=== PATIENT | female | born 1985 | race Caucasian/White ===

== ENCOUNTER 2022-10-07 11:45 | Outpatient (RCR) | payer MEDICARE, SELFPAY ==
[2022-10-03 13:28] VITALS: BP 106/66; PULSE 76; TEMP 37.3
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
[2022-10-03 13:30] VITALS: BMI 21.5
--- NOTE | 2022-10-03 15:05 | HO.PHP ---
Clients case was reviewed and opened today in treatment team.
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
[2022-10-04 14:19] LABS: Amphetamine Screen Urine Not Detected (Not Detect); Barbiturates, Urine Not Detected (Not Detect); Benzodiazepines Screen Urine POSITIVE (Not Detect); Cannabinoid Screen Urine POSITIVE (Not Detect); Cocaine Screen Urine Not Detected (Not Detect); Fentanyl, urine Not Detected (Not Detect); Opiate Screen Urine Not Detected (Not Detect); Phencyclidine Screen Urine Not Detected (Not Detect)
--- NOTE | 2022-10-07 09:57 | HO.PHPPROGNO ---
Subjective Subjective Date of Service: 10/07/22 Reason For Visit: bipolar,Opiate dependence Medical Problems Affecting Mental Status: No Interim History: Reports having migraines every day, difficulty getting up early to come to program. Continues with some opioid withdrawal symptoms, diaphoresis, restlessness, chattering teeth. Reports feels tired throughout the day, napping in afternoons. Experiencing triggers, cravings. Reports struggling to be here, not finding program very helpful. Medication Compliance: Yes Side effects from medications: No Attending Groups: Yes Review of Systems Acute medical concerns: No Medical Review of Systems: unchanged Review of Systems Review of Systems Reports withdrawal symptoms. Yes all other systems are reviewed and are negative Constitutional: Reports daytime sleepiness, Reports malaise and Reports night sweats Mental Status Exam Mental Status Exam Narrative: Guarded, irritable Patient Appearance: Appropriate Patient Orientation: Person, Place, Time and Situation Level of Consciousness: Awake, Appropriate and Alert Patient Behavior: Appropriate, Cooperative and Good Eye Contact Mood Description: Appropriate Affect Description: Hostile (irritable), Anxious and Apprehensive Patient Cognition Impaired: No Ability to Follow Directions: Good Speech Pattern: Clear Memory Description: Intact Hallucinations: None Delusions: Not Present Thought Process: Intact, Goal Oriented and Linear Thought Content: positive for Intact, positive for Goal Oriented and positive for Linear Depressive Symptoms: Increased Anxiety and Increased Fatigue Judgement: Fair Diagnostics Vital Signs (24Hr): BMI result Body Mass Index 21.5 Assessment & Plan Assessment & Plan (1) Opioid dependence, uncomplicated: Status: Acute Code(s): F11.20 - Opioid dependence, uncomplicated Assessment and Plan: Reports continues with opioid withdrawals. Describes as diaphoresis, restlessness, ?chattering teeth ?. Guarded during encounter. Reports that she has been Fatigued. States that she has daily migraines. Reports difficulty getting up early and coming to program. States that she usually sleeps much later in the day. Not finding program particularly helpful. When explained that this is a voluntary program, she states she is here because her psychiatrist wants her to be here. Medications suggested for withdrawal symptoms, including p.r.n. clonidine, p.r.n. and hydroxyzine. She declined both. Discussed possible increase Suboxone dose due to ongoing withdrawal symptoms. She stated she would discuss a possible dose increase with her outpatient provider. (2) Bipolar disorder, unspecified: Status: Acute Code(s): F31.9 - Bipolar disorder, unspecified Assessment and Plan: Irritable mood. Satisfied with current bipolar medications at this time. (3) Sedative, hypnotic or anxiolytic abuse, uncomplicated: Status: Acute Code(s): F13.10 - Sedative, hypnotic or anxiolytic abuse, uncomplicated Assessment and Plan: Patient irritable, reports daily headaches. Asked if she is experiencing withdrawal symptoms other than from opioids. She denies. Guarded during encounter. Plan 1. Continue with current [facility] plan of care. 2. Continue with current medication regimen. 3. Follow-up as per protocol. Patient educated on: diagnosis, medication risk/benefits, substance abuse and therapeutic strategies Informed Consent: understands Reason for contiued partial hosp. stay Substantial Risk for: inability to function, rapid decompensation and med/psych decompensation Certification I certify that partial hospital treatment is medically necessary due to the symptoms and problems resulting from the patient's mental illness and the failure to treat the patient at the partial hospital level of care would likely result in the patient requiring inpatient psychiatric care which could not be prevented at a less intensive level of care. Total time managing care of this patient today ____ minutes. Discharge Plan Discharge Attending provider: Calvin Esparza Medications: Discontinued clonidine HCl 0.2 mg tablet 0.2 mg PO BID No Action alprazolam 1 mg tablet 1 mg PO QD-BID PRN (Reason: anxiety attack) lithium carbonate 600 mg Capsule 600 mg PO BEDTIME Patient Comments: Patient stated she has not filled recently as she is using left overs from her old prescription. topiramate 50 mg tablet 50 mg PO BID quetiapine 400 mg tablet 400 mg PO BEDTIME buprenorphine-naloxone 8-2 mg film See Rx Instructions .ROUTE .COMPLEX Patient Comments: Patient stated she takes a 1/2 film BID as she stated it was, too much taking one film BID. Rx Instructions: Takes 1/2 film SL BID
--- NOTE | 2022-10-07 15:27 | HO.PHP ---
[facility] staff members, Glendy and Kay, met with Yaakov to review how she has been feeling things have been going in the program. Yaakov disclosed that she has been struggling with attending the program due to it being early in the morning. Yaakov also stated that she is getting physically ill from the stress about attending the program and has been experiencing an increase in migraines. Yaakov noted part of her wishes the program worked out. [facility] staff members informed Yaakov that we don't want her to become more stressed with attending the program and that we are aware that she has been struggling due to other providers informing us of those challenges for her. [facility] staff members explored if an afternoon program would be more beneficial for her. Yaakov mentioned that it could be. [facility] staff members noted that we can make a phone call to [facility] and place a referral. Yaakov was receptive.
--- NOTE | 2022-10-07 15:44 | HO.PHP ---
[facility] staff member, brought Yaakov to her office to make a phone call to [facility]. [facility] staff and Yaakov spoke with Yecenia through [facility], in which Yecenia disclosed that she needs to follow up with someone at her work place to see if they accept Yaakov's insurance. Yecenia disclosed that she would reach out in 30 minutes. Yaakov was receptive.
== END 2022-10-07 23:59 | disposition home or self-care (01) ==
LOC: HO.PHPA 11:45
PROVIDERS: Nurse Practitioner Psychiatric/Mental Health; Visit Provider Psychiatry & Neurology Psychiatry
DX: F31.9 Bipolar disorder, unspecified (principal); F13.10 Sedative, hypnotic or anxiolytic abuse, uncomplicated; F11.20 Opioid dependence, uncomplicated; Z79.899 Other long term (current) drug therapy
CPT/HCPCS: 80307; 90791; 90853